=== PATIENT | male | born 1995 | race Two or more races ===

== ENCOUNTER 2020-08-22 20:35 | Emergency (ER) | payer MEDICAID ==
[~2020-08-22] VITALS: Ht 170.2 cm; Wt 63.5 kg
[2020-08-22] MEDS ORDERED: IV NORMAL SALINE 1000 ML BAG IV ONE (20:45)
--- NOTE | 2020-08-22 20:45 | NUR ---
at bedside for MSE
[2020-08-22 21:10] LABS: BASOPHILS # (AUTO) 0.1 K/uL (0.0-8.0); BASOPHILS % (AUTO) 0.9 % (0.0-2.0); EOSINOPHILS # (AUTO) 0.1 K/uL (0.0-0.7); EOSINOPHILS % (AUTO) 1.2 % (0.0-7.0); HEMATOCRIT 46.7 % (36.7-47.1); HEMOGLOBIN 15.8 g/dL (12.5-16.3); LYMPHOCYTES # (AUTO) 1.2 K/uL (20.0-40.0); MEAN CORPUSCULAR HGB CONC 34 g/dL (32.5-36.3); MEAN CORPUSCULAR VOLUME 94.7 fL (73.0-96.2); MONOCYTES # (AUTO) 0.2 K/uL (2.0-10.0); MONOCYTES % (AUTO) 3.7 % (0.0-11.0); NEUTROPHILS # (AUTO) 4.6 K/uL (1.8-8.9); NEUTROPHILS % (AUTO) 75.2 % (38.5-71.5); PLATELET COUNT (AUTO) 232 K/uL (152-348); RED BLOOD CELL COUNT(AUTO) 4.93 MIL/uL (4.06-5.63); WHITE BLOOD COUNT (AUTO) 6.1 K/uL (3.6-10.2)
[2020-08-22 21:18] LABS: ALANINE AMINOTRANSFERASE 50 U/L (16-63); ALKALINE PHOSPHATASE 87 U/L (50-136); ASPARTATE AMINOTRANSFERASE 53 U/L (15-37); BILIRUBIN,DIRECT 0.2 mg/dL (0.0-0.2); BILIRUBIN,TOTAL 0.8 mg/dL (0.2-1.0); CARBON DIOXIDE 29 mmol/L (21-32); CHLORIDE 100 mmol/L (98-107); CREATININE 1.5 mg/dL (0.6-1.3); POTASSIUM 5.8 mmol/L (3.5-5.1); TOTAL PROTEIN, SERUM 8.1 g/dL (6.4-8.2); UREA NITROGEN, BLOOD 11 mg/dL (7-18)
[2020-08-22 21:19] LABS: ETHANOL < 3 MG/DL (0-0)
[2020-08-22 21:24] LABS: ACETAMINOPHEN < 2.0 ug/mL (10-30)
[2020-08-22 21:25] LABS: GLUCOSE 429 mg/dL (74-106)
[2020-08-22] MEDS ORDERED: CALCIUM GLUCONATE IV 1 GM in IV DEXTROSE 5% 50 ML IV ONE (22:00)
[2020-08-22] MEDS ORDERED: INSULIN REGULAR, HUMAN 300 UNIT/3 ML VIAL SQ ONE (22:00)
[2020-08-22] MEDS ORDERED: IV NORMAL SALINE 1,000 ML IV ONE (22:00)
[2020-08-22] MEDS ORDERED: FUROSEMIDE 40 MG/4 ML VIAL IV ONE (22:00)
[2020-08-22 22:10] LABS: ABG BASE EXCESS -2.3 mmol/L; ABG HCO3 25.2 mmol/L; ABG PCO2 54.2 mmHg (35.0-45.0); ABG PH 7.286 (7.350-7.450); ABG PO2 100.2 mmHg (75.0-100.0); ABG SITE RIGHT RADIAL; ABG TOTAL HEMOGLOBIN 15.6 G/dL (13.5-18.0); MetHb 0.3 % (0.0-1.5); O2Hb 96.3 % (94.0-97.0); VENT MODE RA
[2020-08-22] MEDS ORDERED: FUROSEMIDE 40 MG/4 ML VIAL ONE (22:10)
[2020-08-22] MEDS ORDERED: CALCIUM GLUCONATE 1 GM/10 ML VIAL IV ONE (22:10)
--- NOTE | 2020-08-22 22:10 | NUR ---
has made decision to admit patient based on laboratory results. Orders for medications are also given. However, patient is now AO x 4. Verbally responsive, not groggy or lethargic and is verbalizing that he wants to leave against medical advice.
[2020-08-22] MEDS ORDERED: FUROSEMIDE 20 MG TABLET ONE (22:14)
--- NOTE | 2020-08-22 22:15 | NUR ---
MD at bedside explaining all the risks of leaving against medical advice, up to and including . However, patient is adamant in not staying and is willing to sign the against medical advice form. RN witnessed patient signing the form. Oral Lasix 40 mg given, the rest of the medications were refused.
--- NOTE | 2020-08-22 22:17 | NUR ---
Provided patient with clothing and socks and a phone to make a call. IV removed. Catheter intact and site benign. Pressure and 4x4 gauze applied to site. No bleeding noted. Per patient, he will be picked up by his buddies, and to "not worry about it". He was aware of the hotel where he came from. Informed him that he is welcome to come back if he experiences any symptoms and changed his mind. Ambulated out of ER in steady gait.
[2020-08-22 22:35] VITALS: BP 155/60
[2020-08-22] MEDS ORDERED: FUROSEMIDE 20 MG TABLET PO ONE (22:45)
== END 2020-08-22 22:47 | disposition left against medical advice (07) ==
LOC: ER 20:37 → EDBD 20:37 → ER 22:47
DX: T42.4X1A Poisoning by benzodiazepines, accidental (unintentional), initial encounter (principal); T40.2X1A Poisoning by other opioids, accidental (unintentional), initial encounter; Y92.59 Other trade areas as the place of occurrence of the external cause; R00.0 Tachycardia, unspecified; F11.10 Opioid abuse, uncomplicated; F13.10 Sedative, hypnotic or anxiolytic abuse, uncomplicated; R73.9 Hyperglycemia, unspecified; E87.5 Hyperkalemia; E87.2 Acidosis; Z20.828 Contact with and (suspected) exposure to other viral communicable diseases
CPT/HCPCS: 36415; 36600; 70450; 71045; 72125; 85025; 93005; G0480; J0610; J1940